=== PATIENT | female | born 1970 | race Caucasian/White ===

== ENCOUNTER 2024-09-09 10:29 | Emergency (ER) | payer BC, OTHER ==
[~2024-09-09] VITALS: Ht 157.5 cm; Wt 54.9 kg
[2024-09-09 11:29] LABS: BASOPHILS ABSOLUTE AUTO 0.01 K/mm3 (0.00-0.23); BASOPHILS PERCENT AUTO 0 % (0-2); EOSINOPHILS ABSOLUTE AUTO 0.09 K/mm3 (0.00-0.68); EOSINOPHILS PERCENT AUTO 2 % (0-6); Hematocrit 39.8 % (33.0-51.0); Hemoglobin 13.3 g/dL (11.5-16.0); IMMATURE GRAN ABSOLUTE AUTO 0.04 K/mm3 (0.00-0.10); IMMATURE GRAN PERCENT AUTO 1 % (0-1); LYMPHOCYTES ABSOLUTE AUTO 1.18 K/mm3 (0.84-5.20); LYMPHOCYTES PERCENT AUTO 28 % (21-46); MONOCYTES ABSOLUTE AUTO 0.46 K/mm3 (0.16-1.47); MONOCYTES PERCENT AUTO 11 % (4-13); Mean Corpuscular HGB 29.2 pg (26.0-34.0); Mean Corpuscular HGB Conc 33.4 g/dL (31.5-36.5); Mean Corpuscular Volume 88 fL (80-100); NEUTROPHILS ABSOLUTE AUTO 2.39 K/mm3 (1.96-9.15); NEUTROPHILS PERCENT AUTO 57 % (41-73); Platelet Count 228 K/mm3 (150-400); RDW Standard Deviation 41.8 fL (35.1-46.3); Red Blood Cell Count 4.55 M/mm3 (3.80-5.20); White Blood Cell Count 4.17 K/mm3 (4.00-11.30)
[2024-09-09 11:46] LABS: Bun/Creatinine Ratio 19.9 (12.0-20.0); Calcium, Blood 9.2 mg/dL (8.5-10.1); Creatinine, Blood 0.55 mg/dL (0.40-1.00); Magnesium, Blood 2.2 mg/dL (1.6-2.4); Potassium, Blood 3.3 mmol/L (3.5-5.5)
[2024-09-09] MEDS ORDERED: ESCITALOPRAM OXA5 MG PO (12:51)
[2024-09-09] MEDS ORDERED: PRAZOSIN HCL1 M2 PO (12:51)
[2024-09-09] MEDS ORDERED: Potassium Chloride 20 MEQ TabCR PO ONE (14:10)
[2024-09-09] MEDS ORDERED: Magnesium Oxide 400 MG Tab PO ONE (14:10)
[2024-09-09] MEDS ORDERED: ACET500 PO (14:12)
== END 2024-09-09 14:35 | disposition home or self-care (01) ==
LOC: ER 10:29
PROVIDERS: Emergency Medicine
DX: R00.1 Bradycardia, unspecified (principal); R42 Dizziness and giddiness; Z91.041 Radiographic dye allergy status; Z88.5 Allergy status to narcotic agent
CPT/HCPCS: 71045; 80048; 83735; 84484; 85025; 85379; 93005; 93010; 99284-25; A9270